=== PATIENT | male | born 1990 ===

== ENCOUNTER 2021-11-04 12:30 | Outpatient (CLI) | payer OTHER ==
--- NOTE | 2021-11-04 13:16 | XRAY Report ---
PROCEDURE: Finger(s) LT INDICATIONS: LACERATION OF LEFT INDEX FINGER TECHNIQUE: AP hand, 2 views of the second finger(s) acquired. COMPARISON: None. FINDINGS: Bones: No fractures or dislocations. No suspicious bony lesions. Soft tissues: No suspicious soft tissue calcifications. No radiopaque foreign body. Subtle laceratio n is seen at the second digit. IMPRESSION: No acute osseous abnormality. No radiopaque foreign body. Reviewed by: Tobi Alas MD on 11/04/2021 1:15 PM PST Approved by: Tobi Alas MD on 11/04/2021 1:15 PM PST Station ID: [id number]
== END 2021-11-04 23:59 | disposition home or self-care (01) ==
LOC: DI.S 12:30
PROVIDERS: ATTEND Emergency Medicine
DX: S61.211A Laceration without foreign body of left index finger without damage to nail, initial encounter (principal)